=== PATIENT | female | born 1965 | race Caucasian/White ===

== ENCOUNTER 2019-11-07 13:50 | Emergency (ER) | payer MEDICAID ==
[~2019-11-07] VITALS: Ht 162.6 cm; Wt 127.0 kg
[2019-11-07 14:04] VITALS: BP 134/91
[2019-11-07] MEDS ORDERED: CefTRIAXone 250MG IM Kit w/LIDOcaine IM ONE (15:10)
[2019-11-07] MEDS ORDERED: azithromycin 250mg tablet PO ONE (15:10)
[2019-11-07] MEDS ORDERED: CLOT30CR24 TOP (15:15)
[2019-11-07] MEDS ORDERED: FLUC150T66 PO (15:15)
[2019-11-07] MEDS ORDERED: LACT1CAP75 PO (15:15)
== END 2019-11-07 15:42 | disposition home or self-care (01) ==
LOC: ER 13:52
DX: B37.3 Candidiasis of vulva and vagina (principal); Z11.3 Encounter for screening for infections with a predominantly sexual mode of transmission; I10 Essential (primary) hypertension; J45.909 Unspecified asthma, uncomplicated; K21.9 Gastro-esophageal reflux disease without esophagitis; E11.9 Type 2 diabetes mellitus without complications; Z98.890 Other specified postprocedural states; Z88.1 Allergy status to other antibiotic agents; Z79.899 Other long term (current) drug therapy
CPT/HCPCS: 36415; 87210; 87491; 87591; 99283; J0696; Q0112

== ENCOUNTER 2023-06-16 09:47 | Emergency (ER) | payer MEDICAID ==
[~2023-06-16] VITALS: Ht 162.6 cm; Wt 121.0 kg
[~2023-06-16 09:47] MED LIST: CLOT30CR24 TOP; LACT1CAP75 PO
[2023-06-16] MEDS: LIDOcaine 1% W/epiNEPHrine 1:100,000 20ml vial SQ ONE (10:55)
[2023-06-16] MEDS ORDERED: SULF1TAB49 PO (11:23)
[2023-06-16 11:40] VITALS: BP 150/86; PULSE 93; RESP 16; TEMP 98; O2SAT 97
== END 2023-06-16 11:42 | disposition home or self-care (01) ==
LOC: ER 09:47
DX: L02.415 Cutaneous abscess of right lower limb (principal); I10 Essential (primary) hypertension; K21.9 Gastro-esophageal reflux disease without esophagitis; E11.9 Type 2 diabetes mellitus without complications; Z88.1 Allergy status to other antibiotic agents; Z91.041 Radiographic dye allergy status; Z79.2 Long term (current) use of antibiotics; Z79.899 Other long term (current) drug therapy; Z98.890 Other specified postprocedural states
CPT/HCPCS: 10060; 99283; A6266; A6449

== ENCOUNTER 2023-06-18 14:10 | Emergency (ER) | payer MEDICAID ==
[~2023-06-18] VITALS: Ht 162.6 cm; Wt 120.5 kg
[~2023-06-18 14:10] MED LIST changes: +SULF1TAB49 PO
[2023-06-18 14:21] VITALS: BP 183/93; PULSE 102; RESP 19; TEMP 98.3; O2SAT 97
== END 2023-06-18 15:19 | disposition home or self-care (01) ==
LOC: ER 14:11
DX: L02.415 Cutaneous abscess of right lower limb (principal); K21.9 Gastro-esophageal reflux disease without esophagitis; E11.9 Type 2 diabetes mellitus without complications; I10 Essential (primary) hypertension; Z88.8 Allergy status to other drugs, medicaments and biological substances; Z88.1 Allergy status to other antibiotic agents; Z79.899 Other long term (current) drug therapy
CPT/HCPCS: 99281; A6449

== ENCOUNTER 2024-05-04 12:27 | Emergency (ER) | payer MEDICAID ==
[~2024-05-04] VITALS: Ht 154.9 cm; Wt 84.1 kg
[~2024-05-04 12:27] MED LIST changes: -SULF1TAB49 PO
[2024-05-04 12:46] VITALS: BP 131/80; PULSE 101; TEMP 97; O2SAT 100
[2024-05-04 15:35] VITALS: RESP 16
== END 2024-05-04 15:36 | disposition home or self-care (01) ==
LOC: ER 12:27
DX: S30.0XXA Contusion of lower back and pelvis, initial encounter (principal); I10 Essential (primary) hypertension; E11.9 Type 2 diabetes mellitus without complications; J45.909 Unspecified asthma, uncomplicated; K21.9 Gastro-esophageal reflux disease without esophagitis; Z90.49 Acquired absence of other specified parts of digestive tract; Z88.1 Allergy status to other antibiotic agents; Z88.3 Allergy status to other anti-infective agents; Z91.030 Bee allergy status; Z98.890 Other specified postprocedural states; W01.0XXA Fall on same level from slipping, tripping and stumbling without subsequent striking against object, initial encounter; Y93.89 Activity, other specified; Y92.89 Other specified places as the place of occurrence of the external cause; Y99.8 Other external cause status
CPT/HCPCS: 72170; 72220; 99284

== ENCOUNTER 2024-08-05 06:08 | Inpatient (IN) | payer MEDICAID ==
[2024-08-05] VITALS (13 sets, daily range): BP systolic 107–135; BP diastolic 65–89; PULSE 79–103; RESP 15–40; TEMP 97.2–97.8; O2SAT 90–97
[~2024-08-05] VITALS: Ht 175.3 cm; Wt 114.4 kg
[2024-08-05] MEDS ORDERED: heparin 10,000 units/1 ML INJ IV PRN (06:20)
[2024-08-05] MEDS ORDERED: heparin 10,000 units/1 ML INJ IV ONE (06:20)
[2024-08-05 06:28] LABS: BASOPHILS # (AUTO) 0.1 X10'3 (0-0.2); BASOPHILS % (AUTO) 0.9 % (0-1); EOSINOPHILS # (AUTO) 0.5 X10'3 (0-0.9); EOSINOPHILS % (AUTO) 4.6 % (0-6); HEMATOCRIT 40.7 % (35.0-45.0); HEMOGLOBIN 13.9 g/dl (12.0-16.0); LYMPHOCYTES # (AUTO) 3.7 X10'3 (1.1-4.8); LYMPHOCYTES % (AUTO) 35.3 % (21-51); MEAN CORPUSCULAR HEMOGLOBIN 30.7 PG (27.0-31.0); MEAN CORPUSCULAR HGB CONC 34.1 g/dL (33.0-36.5); MEAN CORPUSCULAR VOLUME 90.2 FL (78-98); MEAN PLATELET VOLUME 8.2 FL (7.4-10.4); MONOCYTES # (AUTO) 0.8 X10'3 (0-0.9); MONOCYTES % (AUTO) 7.8 % (2-12); NEUTROPHILS # (AUTO) 5.3 X10'3 (1.8-7.7); NEUTROPHILS % (AUTO) 51.4 % (42-75); PLATELET COUNT 314 X10'3 (140-440); RED BLOOD COUNT 4.52 X10'6 (4.20-5.60); RED CELL DISTRIBUTION WIDTH 13.8 % (11.5-14.5); WHITE BLOOD COUNT 10.4 X10'3 (4.5-11.0)
[2024-08-05 06:37] LABS: ALANINE AMINOTRANSFERASE 36 U/L (12-78); ALBUMIN 3.4 G/DL (3.4-5.0); ALBUMIN/GLOBULIN RATIO 0.9 (1.1-1.5); ALKALINE PHOSPHATASE 71 IU/L (46-116); ANION GAP 12 (8-16); ASPARTATE AMINO TRANSFERASE 24 U/L (10-37); BILIRUBIN,TOTAL 0.6 MG/DL (0.1-1.0); BLOOD UREA NITROGEN 13 MG/DL (7-18); BUN/CREATININE RATIO 17.3 (10.0-20.0); CALCIUM 8.9 MG/DL (8.5-10.1); CHLORIDE 104 MMOL/L (99-107); CREATININE 0.75 MG/DL (0.40-0.90); GLUCOSE 256 MG/DL (70-104); POTASSIUM 3.3 MMOL/L (3.5-5.1); SODIUM 140 MMOL/L (135-145); TOTAL CARBON DIOXIDE 24.4 MMOL/L (24-32); TOTAL PROTEIN 7.1 G/DL (6.4-8.2); eCRCL 84 ML/MIN; eGFR 79 ML/MIN
[2024-08-05] MEDS: heparin 25,000 UNIT/250ml bag 250 ML IV PRN (06:37)
[2024-08-05] MEDS: heparin 10,000 units/1 ML INJ IV ONE (06:38)
[2024-08-05] MEDS: morphine 4 MG/ML inj SYRINge IV ONE (06:40)
[2024-08-05] MEDS ORDERED: midazolam 1 mg/ML 2ml injection ONE (06:41)
[2024-08-05] MEDS ORDERED: LIDOcaine 1% (10mg/ml) 2ml vial ONE (06:41)
[2024-08-05] MEDS ORDERED: fentaNYL/PF 50MCG/1 ML 2ML syringe ONE (06:41)
[2024-08-05] MEDS ORDERED: LIDOcaine 1% 30ml preserv. free vial ONE (06:41)
[2024-08-05] MEDS: MESSAGE TO NURSING IV ONE (06:41)
[2024-08-05] MEDS ORDERED: verapamil 2.5 mg/ml inj IV ONE (06:41)
[2024-08-05] MEDS: ondansetron/PF 4mg/2ml inj IV ONE (06:41)
[2024-08-05] MEDS ORDERED: iohexol 350 MG/ML 50ML vial IV ONE (06:41)
[2024-08-05] MEDS ORDERED: iohexol 350MG/ML 100ml bottle IV ONE ×3 (06:42→11:51)
[2024-08-05] MEDS ORDERED: heparin 1,000unit/ml 10ml vial 10 ML ONE (06:42)
[2024-08-05] MEDS ORDERED: nitroGLYCERIN 500mcg/5mL D5W 5 ML IV ONE ×2 (06:42→07:48)
[2024-08-05 06:45] LABS: PRO BRAIN NATRIURETIC PEPTIDE 58 PG/ML (0-125)
[2024-08-05] MEDS: metoprolol tartrate 1mg/ml inj IV ONE (06:45)
[2024-08-05 07:15] LABS: APTT 23 SECONDS (22-32); INR 1.1 INR; PROTHROMBIN TIME 11.1 SECONDS (9.0-12.0)
[2024-08-05] MEDS ORDERED: heparin 1,000 UNITS/NS 500ml 500 ML ONE (07:31)
[2024-08-05] MEDS ORDERED: heparin, porcine-25,000 units/D5-250ml premix IV ONE (08:00)
[2024-08-05] MEDS ORDERED: ticagrelor 90mg tablet ONE (08:37)
[2024-08-05] MEDS: ticagrelor 90mg tablet PO ONE (10:25)
[2024-08-05] MEDS ORDERED: HYDROcodone/acetaminophen 10/325mg tab PO PRN (10:25)
[2024-08-05] MEDS ORDERED: normal saline 1000ml 1,000 ML IV SCH (10:25)
[2024-08-05] MEDS ORDERED: HYDROcodone/acetaminophen 5mg/325mg tablet PO PRN (10:25)
[2024-08-05] MEDS: aspirin 81mg, enteric-coated 1 TAB TABLET.DR PO SCH (15:05)
[2024-08-05 15:45] LABS: HEMOGLOBIN A1C 8.7 % (4.5-6.2)
[2024-08-05 15:46] LABS: CHOL/HDL RATIO 3.4 (0.00-4.99); CHOLESTEROL 161 MG/DL (0-200); HDL CHOLESTEROL 47 MG/DL (35-60); LDL CHOLESTEROL 98 MG/DL (50-100); TRIGLYCERIDES 122 MG/DL (20-135)
[2024-08-05] MEDS ORDERED: mag hydrox/Alum hydrox/simeth 30ml oral suspension PO PRN (16:45)
[2024-08-05] MEDS ORDERED: magnesium sulf-water 2g/50mL 50 ML IV PRN (16:45)
[2024-08-05] MEDS ORDERED: magnesium sulf-water 4G/100mL 100 ML IV PRN (16:45)
[2024-08-05] MEDS ORDERED: potassium Cl 40MEQ/1/2NS 520ml 520 ML IV PRN (16:45)
[2024-08-05] MEDS ORDERED: magnesium hydroxide 30ml (MOM) UD suspension PO PRN (16:45)
[2024-08-05] MEDS: normal saline 1000ml 1,000 ML IV SCH (16:45)
[2024-08-05] MEDS ORDERED: potassium Cl 20 mEq SR tablet PO PRN (16:45)
[2024-08-05] MEDS ORDERED: ondansetron/PF 4mg/2ml inj IV PRN (16:45)
[2024-08-05] MEDS: K and/or MAG REPLACEMENT MC SCH (20:00)
[2024-08-05] MEDS: enoxaparin 40mg/0.4ml syringe SUBCUT SCH (20:27)
[2024-08-05] MEDS: ticagrelor 90mg tablet PO SCH (20:28)
[2024-08-05] MEDS: potassium Cl 20 mEq SR tablet PO PRN (20:28)
[2024-08-05] MEDS: docusate sod 100mg capsule PO SCH (20:28)
[2024-08-05] MEDS: atorvastatin 20mg tablet PO SCH (20:28)
[2024-08-05] MEDS ORDERED: glucagon, human recombinant 1mg kit SUBCUT PRN (22:45)
[2024-08-05] MEDS ORDERED: DEXTROSE 15 GM of carb/4 tabs (each vial/BOTTLE has 4 tablets) PO PRN ×2 (22:45)
[2024-08-05] MEDS ORDERED: dextrose 50%-water 50ml dispensing syringe IV PRN ×2 (22:45)
[2024-08-06] VITALS (7 sets, daily range): BP systolic 96–124; BP diastolic 55–80; PULSE 69–96; RESP 12–25; TEMP 97.5–98.6; O2SAT 93–97
[2024-08-06 06:49] LABS: BASOPHILS % (AUTO) 0.3 % (0-1); EOSINOPHILS # (AUTO) 0.2 X10'3 (0-0.9); EOSINOPHILS % (AUTO) 1.5 % (0-6); HEMATOCRIT 36.7 % (35.0-45.0); HEMOGLOBIN 12.7 g/dl (12.0-16.0); LYMPHOCYTES # (AUTO) 2.2 X10'3 (1.1-4.8); LYMPHOCYTES % (AUTO) 21.6 % (21-51); MEAN CORPUSCULAR HEMOGLOBIN 31.3 PG (27.0-31.0); MEAN CORPUSCULAR HGB CONC 34.5 g/dL (33.0-36.5); MEAN CORPUSCULAR VOLUME 90.8 FL (78-98); MEAN PLATELET VOLUME 8.5 FL (7.4-10.4); MONOCYTES # (AUTO) 0.8 X10'3 (0-0.9); MONOCYTES % (AUTO) 7.6 % (2-12); NEUTROPHILS # (AUTO) 7.1 X10'3 (1.8-7.7); PLATELET COUNT 284 X10'3 (140-440); RED BLOOD COUNT 4.05 X10'6 (4.20-5.60); WHITE BLOOD COUNT 10.3 X10'3 (4.5-11.0)
[2024-08-06 07:14] LABS: ALANINE AMINOTRANSFERASE 58 U/L (12-78); ALBUMIN 2.9 G/DL (3.4-5.0); ALBUMIN/GLOBULIN RATIO 0.8 (1.1-1.5); ALKALINE PHOSPHATASE 68 IU/L (46-116); ANION GAP 9 (8-16); ASPARTATE AMINO TRANSFERASE 214 U/L (10-37); BILIRUBIN,TOTAL 0.6 MG/DL (0.1-1.0); BLOOD UREA NITROGEN 7 MG/DL (7-18); BUN/CREATININE RATIO 10.1 (10.0-20.0); CALCIUM 8.6 MG/DL (8.5-10.1); CHLORIDE 107 MMOL/L (99-107); CREATININE 0.69 MG/DL (0.40-0.90); GLUCOSE 181 MG/DL (70-104); MAGNESIUM 1.4 MG/DL (1.5-2.4); SODIUM 141 MMOL/L (135-145); TOTAL CARBON DIOXIDE 25.5 MMOL/L (24-32); TOTAL PROTEIN 6.4 G/DL (6.4-8.2); eCRCL 92 ML/MIN; eGFR 87 ML/MIN
[2024-08-06] MEDS: magnesium Cl slow-release 64mg tablet PO PRN (07:57)
[2024-08-06] MEDS ORDERED: lisinopril 10 MG tablet PO SCH (08:00)
[2024-08-06] MEDS: INSULIN LISPRO 100 UNIT/ML INSULN.PEN MULTI-DOSE SQ SCH ×2 (08:02→10:03)
[2024-08-06] MEDS: diazepam inj 5 MG/ML inj. IV ONE (10:04)
[2024-08-06] MEDS: acetaminophen 325mg tablet PO PRN (15:22)
[2024-08-06] MEDS: insulin glargine (Lantus) pen - multi-dose SQ SCH (21:04)
[2024-08-07] VITALS (7 sets, daily range): BP systolic 107–121; BP diastolic 52–70; PULSE 87–96; RESP 13–31; TEMP 97.3–98.2; O2SAT 95–98
[2024-08-07 06:17] LABS: BASOPHILS % (AUTO) 0.2 % (0-1); EOSINOPHILS # (AUTO) 0.7 X10'3 (0-0.9); EOSINOPHILS % (AUTO) 6.7 % (0-6); HEMATOCRIT 35.8 % (35.0-45.0); HEMOGLOBIN 12.3 g/dl (12.0-16.0); LYMPHOCYTES # (AUTO) 2.4 X10'3 (1.1-4.8); LYMPHOCYTES % (AUTO) 24.6 % (21-51); MEAN CORPUSCULAR HEMOGLOBIN 31.3 PG (27.0-31.0); MEAN CORPUSCULAR HGB CONC 34.4 g/dL (33.0-36.5); MEAN PLATELET VOLUME 8.1 FL (7.4-10.4); MONOCYTES # (AUTO) 0.7 X10'3 (0-0.9); MONOCYTES % (AUTO) 7.5 % (2-12); PLATELET COUNT 232 X10'3 (140-440); RED BLOOD COUNT 3.94 X10'6 (4.20-5.60); WHITE BLOOD COUNT 9.8 X10'3 (4.5-11.0)
[2024-08-07 06:37] LABS: ALANINE AMINOTRANSFERASE 41 U/L (12-78); ALBUMIN 2.6 G/DL (3.4-5.0); ALBUMIN/GLOBULIN RATIO 0.7 (1.1-1.5); ALKALINE PHOSPHATASE 65 IU/L (46-116); ANION GAP 9 (8-16); ASPARTATE AMINO TRANSFERASE 94 U/L (10-37); BILIRUBIN,TOTAL 0.6 MG/DL (0.1-1.0); BLOOD UREA NITROGEN 9 MG/DL (7-18); BUN/CREATININE RATIO 13.6 (10.0-20.0); CALCIUM 8.4 MG/DL (8.5-10.1); CHLORIDE 107 MMOL/L (99-107); CREATININE 0.66 MG/DL (0.40-0.90); GLUCOSE 198 MG/DL (70-104); MAGNESIUM 1.6 MG/DL (1.5-2.4); SODIUM 139 MMOL/L (135-145); TOTAL CARBON DIOXIDE 23.5 MMOL/L (24-32); TOTAL PROTEIN 6.1 G/DL (6.4-8.2); eCRCL 96 ML/MIN; eGFR > 90 ML/MIN
[2024-08-07 06:38] LABS: POTASSIUM 4.4 MMOL/L (3.5-5.1)
[2024-08-08] VITALS (10 sets, daily range): BP systolic 98–133; BP diastolic 57–79; PULSE 78–96; RESP 14–19; TEMP 97–97.6; O2SAT 96–100
[2024-08-08] MEDS: albuterol 2.5 MG/3 ML nebule NEB PRN (03:34)
[2024-08-08 07:06] LABS: BASOPHILS % (AUTO) 0.3 % (0-1); EOSINOPHILS # (AUTO) 0.4 X10'3 (0-0.9); EOSINOPHILS % (AUTO) 4.8 % (0-6); HEMATOCRIT 35.6 % (35.0-45.0); HEMOGLOBIN 11.9 g/dl (12.0-16.0); LYMPHOCYTES # (AUTO) 1.8 X10'3 (1.1-4.8); MEAN CORPUSCULAR HEMOGLOBIN 30.9 PG (27.0-31.0); MEAN CORPUSCULAR HGB CONC 33.5 g/dL (33.0-36.5); MEAN PLATELET VOLUME 8.3 FL (7.4-10.4); MONOCYTES # (AUTO) 0.6 X10'3 (0-0.9); MONOCYTES % (AUTO) 6.6 % (2-12); NEUTROPHILS # (AUTO) 5.7 X10'3 (1.8-7.7); NEUTROPHILS % (AUTO) 67.3 % (42-75); PLATELET COUNT 259 X10'3 (140-440); RED BLOOD COUNT 3.87 X10'6 (4.20-5.60); WHITE BLOOD COUNT 8.4 X10'3 (4.5-11.0)
[2024-08-08 07:10] LABS: ALANINE AMINOTRANSFERASE 35 U/L (12-78); ALBUMIN 2.7 G/DL (3.4-5.0); ALBUMIN/GLOBULIN RATIO 0.8 (1.1-1.5); ALKALINE PHOSPHATASE 63 IU/L (46-116); ANION GAP 7 (8-16); ASPARTATE AMINO TRANSFERASE 50 U/L (10-37); BILIRUBIN,TOTAL 0.6 MG/DL (0.1-1.0); BLOOD UREA NITROGEN 8 MG/DL (7-18); BUN/CREATININE RATIO 12.9 (10.0-20.0); CALCIUM 8.5 MG/DL (8.5-10.1); CHLORIDE 108 MMOL/L (99-107); CREATININE 0.62 MG/DL (0.40-0.90); GLUCOSE 174 MG/DL (70-104); MAGNESIUM 1.6 MG/DL (1.5-2.4); SODIUM 141 MMOL/L (135-145); TOTAL CARBON DIOXIDE 26.1 MMOL/L (24-32); TOTAL PROTEIN 6.2 G/DL (6.4-8.2); eCRCL 102 ML/MIN; eGFR > 90 ML/MIN
[2024-08-08] MEDS: metoprolol succinate 25mg (24-HOUR) SR. Tablet PO SCH (08:00)
[2024-08-09 02:00] VITALS: BP 113/71; PULSE 85; RESP 16; TEMP 97.4; O2SAT 98
[2024-08-09 03:52] VITALS: PULSE 82; RESP 16; O2SAT 98
[2024-08-09 06:26] LABS: BASOPHILS % (AUTO) 0.3 % (0-1); EOSINOPHILS # (AUTO) 0.6 X10'3 (0-0.9); EOSINOPHILS % (AUTO) 6.5 % (0-6); HEMATOCRIT 34.6 % (35.0-45.0); HEMOGLOBIN 11.6 g/dl (12.0-16.0); LYMPHOCYTES # (AUTO) 2.2 X10'3 (1.1-4.8); MEAN CORPUSCULAR HEMOGLOBIN 30.7 PG (27.0-31.0); MEAN CORPUSCULAR HGB CONC 33.6 g/dL (33.0-36.5); MEAN CORPUSCULAR VOLUME 91.5 FL (78-98); MEAN PLATELET VOLUME 8.6 FL (7.4-10.4); MONOCYTES # (AUTO) 0.7 X10'3 (0-0.9); MONOCYTES % (AUTO) 7.4 % (2-12); NEUTROPHILS # (AUTO) 5.9 X10'3 (1.8-7.7); NEUTROPHILS % (AUTO) 62.8 % (42-75); PLATELET COUNT 267 X10'3 (140-440); RED BLOOD COUNT 3.79 X10'6 (4.20-5.60); RED CELL DISTRIBUTION WIDTH 13.9 % (11.5-14.5); WHITE BLOOD COUNT 9.4 X10'3 (4.5-11.0)
[2024-08-09 06:48] LABS: ALANINE AMINOTRANSFERASE 29 U/L (12-78); ALBUMIN 2.5 G/DL (3.4-5.0); ALBUMIN/GLOBULIN RATIO 0.7 (1.1-1.5); ALKALINE PHOSPHATASE 62 IU/L (46-116); ANION GAP 7 (8-16); ASPARTATE AMINO TRANSFERASE 34 U/L (10-37); BILIRUBIN,TOTAL 0.7 MG/DL (0.1-1.0); BLOOD UREA NITROGEN 8 MG/DL (7-18); BUN/CREATININE RATIO 15.7 (10.0-20.0); CALCIUM 8.4 MG/DL (8.5-10.1); CHLORIDE 109 MMOL/L (99-107); CREATININE 0.51 MG/DL (0.40-0.90); GLUCOSE 166 MG/DL (70-104); MAGNESIUM 1.7 MG/DL (1.5-2.4); POTASSIUM 4.1 MMOL/L (3.5-5.1); SODIUM 140 MMOL/L (135-145); TOTAL CARBON DIOXIDE 23.8 MMOL/L (24-32); TOTAL PROTEIN 5.9 G/DL (6.4-8.2); eCRCL 124 ML/MIN; eGFR > 90 ML/MIN
[2024-08-09 07:00] VITALS: BP 102/64; PULSE 81; RESP 16; TEMP 97.6; O2SAT 95
[2024-08-09 09:37] VITALS: PULSE 88; RESP 16; O2SAT 98
[2024-08-09 10:28] VITALS: BP 113/69; PULSE 82; RESP 17; TEMP 97.1; O2SAT 98
== END 2024-08-09 12:05 | DRG 174 ==
LOC: ER 06:09 → PAS IN 12:16 → PCU 3S 17:31
PROVIDERS: ADMIT Internal Medicine Cardiovascular Disease; ATTEND Internal Medicine Cardiovascular Disease
PROC: 027135Z Dilation of Coronary Artery, Two Arteries with Two Drug-eluting Intraluminal Devices, Percutaneous Approach (ICD-10-PCS; principal; 2024-08-05)
PROC: 4A023N7 Measurement of Cardiac Sampling and Pressure, Left Heart, Percutaneous Approach (ICD-10-PCS; 2024-08-05)
PROC: B2111ZZ Fluoroscopy of Multiple Coronary Arteries using Low Osmolar Contrast (ICD-10-PCS; 2024-08-05)
PROC: B2151ZZ Fluoroscopy of Left Heart using Low Osmolar Contrast (ICD-10-PCS; 2024-08-05)
PROC: B3251ZZ Computerized Tomography (CT Scan) of Bilateral Common Carotid Arteries using Low Osmolar Contrast (ICD-10-PCS; 2024-08-05)
PROC: B32G1ZZ Computerized Tomography (CT Scan) of Bilateral Vertebral Arteries using Low Osmolar Contrast (ICD-10-PCS; 2024-08-05)
PROC: B32R1ZZ Computerized Tomography (CT Scan) of Intracranial Arteries using Low Osmolar Contrast (ICD-10-PCS; 2024-08-05)
PROC: B3281ZZ Computerized Tomography (CT Scan) of Bilateral Internal Carotid Arteries using Low Osmolar Contrast (ICD-10-PCS; 2024-08-05)
DX: I21.29 ST elevation (STEMI) myocardial infarction involving other sites (principal); I63.9 Cerebral infarction, unspecified; E11.9 Type 2 diabetes mellitus without complications; E03.9 Hypothyroidism, unspecified; I10 Essential (primary) hypertension; E78.00 Pure hypercholesterolemia, unspecified; F41.9 Anxiety disorder, unspecified; K21.9 Gastro-esophageal reflux disease without esophagitis; G25.81 Restless legs syndrome; G47.00 Insomnia, unspecified; G47.33 Obstructive sleep apnea (adult) (pediatric); J45.909 Unspecified asthma, uncomplicated; F32.A Depression, unspecified; Z88.8 Allergy status to other drugs, medicaments and biological substances; Z88.1 Allergy status to other antibiotic agents; Z91.030 Bee allergy status; Z91.018 Allergy to other foods; Z90.49 Acquired absence of other specified parts of digestive tract; Z98.891 History of uterine scar from previous surgery
CPT/HCPCS: 36415; 70450; 70496; 70498; 70551; 71045; 76937; 80053; 80061; 82948; 83036; 83735; 83880; 84484; 85025; 85347; 85610; 85730; 92508; 92616; 93005; 93306; 93458; 94640; 94760; 97161; 97530; 99152; 99153; 99291; A6258; C1725; C1751; C1769; C1874; C1894; C9601; C9606; G0378; J1644; J1650; J1815; J2003; J2250; J2270; J2405; J3010; J3490; J7030; Q9967

== ENCOUNTER 2024-12-22 10:33 | Emergency (ER) | payer MEDICAID ==
[~2024-12-22] VITALS: Ht 162.6 cm; Wt 113.3 kg
[2024-12-22 11:00] VITALS: BP 123/74; PULSE 73; RESP 18; TEMP 98; O2SAT 99
--- NOTE | 2024-12-22 11:36 | RADIOLOGY REPORT ---
Indication: pain Technique: DI HAND, COMPLETE (3VW MIN)HAND 3VW Comparison: None FINDINGS/IMPRESSION: No radiographic evidence for acute fracture or dislocation. 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 Moderate degenerate changes of the STT interval. Chondrocalcinosis. Old ulnar s tyloid fracture. Gver-dy-ewtubhkl degenerate changes of the PIP, d IP joints.
--- NOTE | 2024-12-22 12:19 | Physician Documentation ---
History of Present Illness ~ Chief Complaint: Hand pain Stated Complaint: L WRIST PAIN Time Seen by MD: 11:51 Primary Medical Doctor: DEONTE HOGAN This is a 59-year-old female who presents with left wrist pain and swelling onset this morning after feeling a pop while using her hand to help herself push out of bed, patient reports history of right-sided weakness related to past CVA. Patient reports no other acute symptoms or concerns. Patient reports no numbness in left hand. Tetanus within 5 years: No Medication Reconciliation Allergies: Coded Allergies: walnut (Verified Allergy, Severe, ANAPHYLACTIC, 12/22/24) clindamycin (Unverified Allergy, Mild, 12/22/24) erythromycin base (Unverified Allergy, Mild, hives, vomiting, 12/22/24) bee pollen (Verified Allergy, Unknown, SWELLING AND FACE BREATHING, 12/22/24) Scheduled Clotrimazole (Clotrimazole), 1 APPLIC TOP Q12H Lactobacillus Combo No.10 (Probiotic), 1 TAB PO DAILY Past Medical History Past Medical History: High Cholesterol, Hypertension, Asthma, GERD, Diabetes, Anxiety Past Surgical History: appendectomy, , other Alcohol Use: Rarely Drug Use: none Lives with: Mother Lives In: Home Occupation: employed Review of Systems ROS As stated above in the HPI, otherwise all systems are reviewed and negative. Physical Exam Vital Signs: Temperature: 98.0, Source: Oral, Heart Rate: 73, Respiratory Rate: 18, BP: 123/74, Pulse Oximetry: 99, Weight: 113.300 Oxygen Flow Rate: 0 Physical Exam VITALS: Reviewed and as above. GENERAL: Alert, nontoxic appearing, no apparent distress. RESPIRATORY: No increased work of breathing, no respiratory distress, speaking in full clear sentences MUSCULOSKELETAL: Left wrist swollen as compared to right, left wrist tender palpation all aspects, sensation and brisk capillary refill present distal to injury. SKIN: No ecchymosis or erythema to left wrist Progress Results/Orders Results/Orders Orders - SOPHIA ZELAYA Hand, Complete (3vw Min) (12/22/24 11:08) Ortho Orders (12/22/24 ) Completed Orders - SOPHIA ZELAYA Hand, Complete (3vw Min) (12/22/24 11:08) Ibuprofen Tablet (Motrin Tablet) (12/22/24 12:15) Vital Signs 12/22/24 11:00 Temp 98.0 Pulse 73 Resp 18 B/P (MAP) 123/74 Pulse Ox 99 O2 Flow Rate 0 EKG/XRAY/CT/US/VASC/MRI Bone/Soft Tissue X-Ray (Ext.) : Additional Comment Exam: HAND, COMPLETE (3VW MIN) Indication: pain Technique: DI HAND, COMPLETE (3VW MIN)HAND 3VW Comparison: None FINDINGS/IMPRESSION: No radiographic evidence for acute fracture or dislocation. Severe degenerate changes of the 1st carpometacarpal joint. Moderate degenerate changes of the STT interval. Chondrocalcinosis. Old ulnar styloid fracture. Pjtv-eo-leetbdsn degenerate changes of the PIP, d IP joints. Electronically Signed by:LILLIAM HENDERSON MD Date & Time: 12/22/24 1137 Dictated by: LILLIAM HENDERSON MD Dictation date and time: 12/22/24 1115 I have reviewed and agree with the radiology report. I have reviewed and interpreted the imaging as: No acute fracture or dislocation Medical Decision Making Findings This 59-year-old female presented with left wrist and hand pain following injury while lifting herself with the hand off her bed, x-ray did not demonstrate evidence of fracture or dislocation, suspect this is soft tissue injury, it is reassuring that the hand and fingers are neurovascularly intact. Patient was medicated for pain and wrist was placed in a splint, plan is for rest, ice, compression, and elevation. Patient was referred to on-call orthopedic hand specialist. Remainder of physical exam was benign with no other injuries observed for reported by patient. Patient is otherwise well and appropriate for outpatient follow up. Careful return to care precautions, follow up instructions, and home care instructions discussed with the patient who verbalized understanding. General Diff Dx:Considerations: Include: Abrasion, Contusion, Fracture, Hematoma, Laceration, Neurovascular injury, Sprain Wrist Diff Dx:Considerations: Include: Arthritis, DJD, Gout, Carpal tunnel snydrome, Ganglion Departure Time of Disposition: 12:17 Disposition: 01 HOME / SELF CARE / HOMELESS Impression: Primary Impression: Left wrist pain Condition: Improved Discharge Instructions: RICE Therapy for Routine Care of Injuries, [id number], Wrist Pain, Adult, [id number] Additional Instructions: Please see the home care instructions for rest, ice, compression, and elevation to treat your injury. Please use the wrist brace of the comfort, please follow up with the primary care provider and the orthopedist at the number provided. You may use ibuprofen and or Tylenol as needed for pain directed by [id number] packaging. Please follow up with your primary care provider in the next few days. Please return to the emergency department for any new or worsening concerning symptoms. Referrals: NO PRIMARY CARE PROVIDER (PCP) BORIS GODWIN Jr., MD Education Educated: Patient Educated regarding: diagnosis, treatment, prognosis, need for follow up Signature Scribe Signature: No scribe Attestation: The note accurately reflects work and decisions made by me.ADDI Kaba 12/22/24 20:53 SOPHIA ZELAYA Dec 22, 2024 12:19
[2024-12-22] MEDS: ibuprofen tablet 400 MG TABLET PO ONE (12:31)
== END 2024-12-22 12:44 | disposition home or self-care (01) ==
LOC: ER 10:34
DX: M25.532 Pain in left wrist (principal); I10 Essential (primary) hypertension; E11.9 Type 2 diabetes mellitus without complications; E78.00 Pure hypercholesterolemia, unspecified; J45.909 Unspecified asthma, uncomplicated; Z88.1 Allergy status to other antibiotic agents; Z88.3 Allergy status to other anti-infective agents; Z91.030 Bee allergy status; Z90.49 Acquired absence of other specified parts of digestive tract
CPT/HCPCS: 29125; 73130; 99283